=== PATIENT | female | born 1990 | race Caucasian/White ===

== ENCOUNTER 2020-08-14 13:46 | Emergency (ER) | payer OTHER ==
[~2020-08-14] VITALS: Ht 157.5 cm; Wt 74.5 kg
[~2020-08-14 13:46] MED LIST: IBUP-1222 PO; VALA500T4 PO
--- NOTE | 2020-08-14 15:18 | NUR ---
PT BROUGHT BACK TO ROOM FROM TRIAGE. PT STATED THAT SHE TESTED POSITIVE FOR COVIS LAST WEDNESDAY. PT STILL HAVING FREQUENT AND FEELS LIKE SHE IS HAVING A HARD TIME BREATHING. PT TALKING IN FULL SENTENCES, O2 SATURATION 95% ON RA.
[2020-08-14 15:30] VITALS: BP 128/74
--- NOTE | 2020-08-14 16:13 | NUR ---
PT RESTING IN [place] COMFORT[place]LY. CALL LIGHT WITHIN REACH.
--- NOTE | 2020-08-14 16:54 | NUR ---
DISCAHRGE INSTRUCTIONS REVIEWED WT PT. ALL QUESTIONS ANSWERED AT THIS TIME.
== END 2020-08-14 16:56 | disposition home or self-care (01) ==
LOC: ED 14:16
DX: U07.1 COVID-19 (principal); J12.9 Viral pneumonia, unspecified; R00.0 Tachycardia, unspecified; R06.02 Shortness of breath
CPT/HCPCS: 71046; 99283